=== PATIENT | female | born 1965 | race Caucasian/White ===

== ENCOUNTER 2022-10-17 18:06 | Emergency (ER) | payer OTHER, SELFPAY ==
[2022-10-17] VITALS (8 sets, daily range): BP systolic 140–174; BP diastolic 75–104; PULSE 97–129; RESP 16–24; TEMP 36.9; O2SAT 93–100
--- NOTE | 2022-10-17 18:07 | DI.RAD.S_ITS ---
PROCEDURE: XR CHEST 1V INDICATIONS: sob TECHNIQUE: One view of the chest was acquired. COMPARISON: None. FINDINGS: Surgical changes and devices: Prior median sternotomy. Lungs and pleura: Scattered calcified granulomas throughout both lungs. No dense consolidations, effusion, pneumothorax. Mediastinum: Mediastinal contours appear normal. Heart size is normal. Bones and chest wall: No suspicious bony lesions. Overlying soft tissues appear unremarkable. IMPRESSION: 1. No acute cardiopulmonary disease. 2. Findings of chronic granulomatous disease. Dictated by: Natali Valentino M.D. on 10/17/2022 at 19:06 Approved by: Natali Valentino M.D. on 10/17/2022 at 19:07
[2022-10-17] MEDS: ALBUTEROL/IPRATROPIUM 3 ML AMPUL INH (18:17)
--- NOTE | 2022-10-17 18:22 | PC.NURSE ---
pt on ETCO2 at 24, CO 1.1 a this time.
[2022-10-17 18:28] LABS: Add Manual Diff / Slide Review NO; Basophils Absolute Auto 100 /uL (0-100); Eosinophils Absolute Auto 200 /uL (0-450); Eosinophils Percent Auto 2.4 % (2-4); Hematocrit 43.3 % (36-46); Hemoglobin 14.2 g/dL (12.0-16.0); Lymphocytes Absolute Auto 2500 /uL (1100-4500); Lymphocytes Percent Auto 25.2 % (25-40); Mean Corpuscular HGB Conc 32.8 % (30-36); Mean Corpuscular Hemoglobin 27.7 PG (26-34); Mean Corpuscular Volume 84.4 fL (80-100); Monocytes Absolute Auto 800 /uL (0-900); Monocytes Percent Auto 8.2 % (3-14); Neutrophils Absolute Auto 6400 /uL (1500-7000); Neutrophils Percent Auto 63.2 % (50-75); Platelet Count 281 X10^3/uL (150-400); Red Blood Cell Count 5.14 X10^6/uL (4.0-5.2); Red Cell Distribution Width 18.8 % (11.6-14.8); White Blood Cell Count 10.1 X10^3/uL (4.5-11.0)
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
[2022-10-17] MEDS: methylPREDNISolone 125 MG/2 ML VIAL IV (18:37)
--- NOTE | 2022-10-17 18:45 | PC.NURSE ---
CO2 up to 5.6, Dr. Valdez at bedside, notified, no new orders. pt c/o chest pain and side discomfort, Dr. valdez to place orders.
[2022-10-17 18:49] LABS: INR 1.9 (0.9-1.3); Prothrombin Time 22.5 SECONDS (10.1-12.7)
[2022-10-17] MEDS: MORPHINE 2 MG/ML INJ IV (18:49)
[2022-10-17] MEDS: dilTIAZem 5 MG/ML SDV 10 MG IV (18:49)
[2022-10-17 18:52] LABS: PTT Partial Thromboplastin Tim 41 SECONDS (26-36)
[2022-10-17 18:54] LABS: Alanine Aminotransferase 48 IU/L (<35); Albumin 4.4 g/dL (3.5-5.0); Albumin Globulin Ratio 1.1 (1.0-2.8); Alkaline Phosphatase 120 U/L (38-126); Aspartate Aminotransferase 57 IU/L (14-36); BUN Creatinine Ratio 26.5 (6-22); Bilirubin Total 0.4 mg/dL (0.2-1.3); Blood Urea Nitrogen 44 mg/dL (7-17); Calcium 9.4 mg/dL (8.4-10.2); Carbon Dioxide 22 mmol/L (22-32); Chloride 105 mmol/L (98-107); Creatine Kinase 71 U/L (30-135); Estimated Glomerular Filt Rate 36 mL/min (>60); Glucose 107 mg/dL (70-100); HEMOLYSIS 23 (0-50); Lipase 307 U/L (23-300); Potassium 4.9 mmol/L (3.4-5.1); Sodium 137 mmol/L (137-145); Total Protein 8.4 g/dL (6.3-8.2)
[2022-10-17] MEDS: ONDANSETRON 4 MG/2 ML INJ IV (18:57)
[2022-10-17 19:05] LABS: NT-proBNP (BNP-Adult 18+) 1410 pg/mL (<125); Troponin I 0.017 ng/mL (0.01-0.034)
[2022-10-17] MEDS: HYDROMORPHONE 0.5 MG INJ IV (19:52)
--- NOTE | 2022-10-17 19:54 | DI.CT.S_ITS ---
PROCEDURE: CT ABDOMEN PELVIS W CON INDICATIONS: ab pain post nephrectomy in july TECHNIQUE: After the administration of oral and IV contrast, axial sections were acquired from the lung bases to the pubic symphysis. Coronal and sagittal reformats were performed. For radiation dose reduction, the following was used: automated exposure control, adjustment of mA and/or kV according to patient size. COMPARISON: None. FINDINGS: Image quality: Excellent. Lung bases: There is bibasilar atelectasis and scarring. There are a few calcified nodules consistent with sequelae of old granulomas disease. In addition, there is a small 0.4 cm left lower lobe nodule on series 3, image 5 Heart: Heart is normal in size. There is a small hiatal hernia. ABDOMEN: Liver: No mass lesion. Gallbladder: Surgically absent. Biliary ducts: No biliary ductal dilatation. Pancreas: Unremarkable. Spleen: Normal in size. Adrenal Glands: There is an indeterminate left adrenal nodule measuring up to 1.6 cm. No right adrenal nodule. Kidneys and Ureters: Right kidney is surgically absent. There is a small amount of indistinct soft tissue in the surgical bed measuring approximately 2.5 x 1.4 cm in transverse dimension on series 2, image 27 and 1.6 cm in craniocaudal dimension on series 4, image 41. Left kidney demonstrates no hydronephrosis. There are multiple areas of renal cortical thinning consistent with sequelae of prior infarct, trauma, or infection. No discrete renal mass. Stomach and Bowel: Stomach, small bowel loops, and colon are normal in caliber and wall thickness. No pericecal inflammatory changes to suggest appendicitis. There is colonic diverticulosis without acute diverticulitis. Peritoneum: No abnormal intraperitoneal fluid. No free air. Ventral Wall: No hernia. Abdominal Nodes: No retroperitoneal or mesenteric adenopathy by size criteria. Vessels: Aorta and inferior vena cava are normal in size. PELVIS: Pelvic Organs: Uterus is surgically absent. Bladder: Unremarkable. Pelvic Nodes: No enlarged lymph nodes. Miscellaneous: No inguinal hernias are seen. Bones: Visualized osseous structures demonstrate no suspicious focal lesions. IMPRESSION: 1. No definite acute intra-abdominal abnormality. 2. Postsurgical changes status post right nephrectomy with indistinct soft tissue in the surgical bed as described. The findings are nonspecific and may reflect scarring, sequelae of a postsurgical collection, or a recurrent mass. Recommend comparison with prior outside imaging if available. 3. Indeterminate left adrenal nodule. Recommend comparison with prior outside studies if available or a follow-up nonemergent adrenal protocol MRI or CT. 4. Small indeterminate left lower lobe 0.4 cm pulmonary nodule. Comparison is also recommended with prior outside studies. 5. Colonic diverticulosis without acute diverticulitis. Dictated by: Eusebio Eddy M.D. on 10/17/2022 at 20:41 Approved by: Eusebio Eddy M.D. on 10/17/2022 at 20:48
== END 2022-10-17 21:08 | disposition home or self-care (01) ==
PROVIDERS: Emergency Provider Emergency Medicine
DX: T59.811A Toxic effect of smoke, accidental (unintentional), initial encounter (principal); R07.9 Chest pain, unspecified; I48.20 Chronic atrial fibrillation, unspecified; Z79.01 Long term (current) use of anticoagulants; R10.9 Unspecified abdominal pain
CPT/HCPCS: 36415; 71045; 74177; 80053; 82550; 83690; 83880; 84484; 85025; 85610; 85730; 93005; 94640; 96374; 96375; 99284; J1170; J2270; J2405; J2930; Q9967